=== PATIENT | male | born 1995 | race Caucasian/White ===

== ENCOUNTER 2023-03-01 03:45 | Emergency (ER) | payer OTHER ==
[~2023-03-01] VITALS: Ht 177.8 cm; Wt 77.1 kg
[2023-03-01 03:45] VITALS: BP 160/90; PULSE 85; RESP 16; TEMP 98.3; O2SAT 98
[2023-03-01 05:10] VITALS: BP 121/89; PULSE 79; RESP 16; TEMP 98.3; O2SAT 98
== END 2023-03-01 05:10 | disposition home or self-care (01) ==
LOC: MED 03:45
DX: S70.12XA Contusion of left thigh, initial encounter (principal); W50.0XXA Accidental hit or strike by another person, initial encounter; Y93.89 Activity, other specified; Y92.89 Other specified places as the place of occurrence of the external cause; Y99.8 Other external cause status
CPT/HCPCS: 99283